=== PATIENT | female | born 1955 | race African-American/Black ===

== ENCOUNTER 2016-09-20 11:25 | Emergency (ER) | payer OTHER ==
[2016-09-20] MEDS ORDERED: TYLENOL PO ONE (14:06)
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
--- NOTE | 2016-09-20 15:05 | XRay Report ---
Cervical spine: Cervicalgia. AP and lateral views compared to the prior study in August 2015. Bridging spondylosis is noted anteriorly between the C4-5, C5-6, and C6-7 levels. C7 is partially obscured by the shoulder tissues in the lateral projection but is unremarkable in the AP view. The bones are aligned with good preservation of the interspaces. No evidence of fracture and no prevertebral swelling. The findings are generally unchanged from prior study. Impression: Degenerative spondylosis. No acute finding.
[2016-09-20 15:33] VITALS: BP 140/80
== END 2016-09-20 15:32 | disposition home or self-care (01) ==
LOC: ED 11:25
DX: S39.012A Strain of muscle, fascia and tendon of lower back, initial encounter (principal); I10 Essential (primary) hypertension; V49.49XA Driver injured in collision with other motor vehicles in traffic accident, initial encounter; Y93.9 Activity, unspecified; Y99.9 Unspecified external cause status; Y92.410 Unspecified street and highway as the place of occurrence of the external cause
CPT/HCPCS: 72040; 72100; 99283

== ENCOUNTER 2017-01-29 11:01 | Emergency (ER) | payer OTHER ==
[2017-01-29 12:49] LABS: Bilirubin,Urine NEG (Negative); Blood,Urine NEG (Negative); Ketones,Urine TR mg/dL (Negative); Leukocyte Esterase,Urine NEG (Negative); Nitrite,Urine NEG (Negative); Protein,Urine <15 mg/dL mg/dL (Negative); Urobilinogen,Urine < 2.0 mg/dL (<2.0); WBC,Urine < 1.0 /HPF (0.0-6.0)
[2017-01-29 12:58] LABS: Basophils % (Auto) 0.7 % (0.0-1.8); Eosinophils % (Auto) 0.8 % (0.0-4.3); Hematocrit 42.1 % (30.3-42.9); Hemoglobin 14.3 gm/dl (10.1-14.3); Mean Corpuscular HGB Conc 34 % (30-34); Mean Corpuscular Hemoglobin 31 pg (28-32); Mean Corpuscular Volume 91 fl (79-97); Platelet Count 222 K/mm3 (140-440); Red Blood Count 4.64 M/mm3 (3.65-5.03); White Blood Count 7.8 K/mm3 (4.5-11.0)
--- NOTE | 2017-01-29 12:58 | Emergency Department Report ---
Chief Complaint: Hyperglycemia Stated Complaint: HIGH BLOOD SUGAR Time Seen by Provider: 01/29/17 12:30 - HPI History of Present Illness: Patient here reports that she was seen at her primary care doctor yesterday and had lab work drawn and they called her and told her to come to the emergency room because her blood sugar via chemistry was elevated greater than 500. She said her primary care physician is Dr. Machado. She said she saw him yesterday because she was not feeling good. She denies any pain. Denies any shortness of breath or chest pain. Denies any headache, nausea or vomiting. Patient take metformin 500 mg ER once daily which she says she took this morning and she also takes valsartan/HCTZ once daily which she took this morning and her blood pressure is now 97/58 and she denies any dizziness. - ROS Review of Systems: All systems are negative unless stated in HPI above. - Exam Vital Signs: Vital Signs 01/29/17 12:08 Temperature 97.7 F Pulse Rate 75 Blood Pressure 97/58 O2 Sat by Pulse 98 Oximetry Physical Exam: Gen.: This is a 62-year-old female well-nourished well-developed and nontoxic in appearance. Cardiovascular: S1, S2. Regular rate rhythm negative murmur Mini neurologic: GCS of 15, alert and oriented 3. Normal gait. Normal speech and no facial drooping. MSE screening note: Focused history and physical exam performed. Due to findings the following was ordered:[facility] ED Medical Decision Making - Lab Data Result diagrams: 01/29/17 12:31 01/29/17 12:31 - Medical Decision Making MDM: Patient screened by provider in triage area. Appropriate protocol initiated and patient to be seen in main ED by Dr. ROMERO Disposition for MSE Condition: Stable
[2017-01-29 13:02] LABS: Anion Gap 19 mmol/L; Blood Urea Nitrogen 12 mg/dL (7-17); Calcium 9.1 mg/dL (8.4-10.2); Carbon Dioxide 26 mmol/L (22-30); Chloride 92.7 mmol/L (98-107); Potassium 4.2 mmol/L (3.6-5.0); Sodium 133 mmol/L (137-145)
[2017-01-29 13:09] LABS: Glucose 539 mg/dL (65-100)
[2017-01-29] MEDS ORDERED: NACL 0.9% 1000 ML 1,000 ML IV ONE ×2 (13:13→13:14)
--- NOTE | 2017-01-29 13:50 | Emergency Department Report ---
ED General Adult HPI - General Chief complaint: Hyperglycemia Stated complaint: HIGH BLOOD SUGAR Time Seen by Provider: 01/29/17 12:58 Source: patient Mode of arrival: Ambulatory Limitations: Language Barrier - History of Present Illness Initial comments: 62-year-old female here with complaint of elevated blood sugar. Patient was seen by her primary care doctor yesterday who started her on metformin for elevated blood sugars. She presented to the emergency department today because of continued weakness. Her blood sugars on arrival her over 500. She is having blurry vision increased thirst and increased urination. Her mental status is normal. She denies other complaints. -: Gradual Location: head Improves with: none Worsens with: none Treatments Prior to Arrival: none - Related Data Previous Rx's Medication Instructions Recorded Last Taken Type Cyclobenzaprine [Flexeril] 10 mg PO TID PRN #12 tablet 09/20/16 Unknown Rx Ibuprofen [Motrin] 600 mg PO Q8H PRN #30 tablet 09/20/16 Unknown Rx Allergies Allergy/AdvReac Type Severity Reaction Status Date / Time No Known Allergies Allergy Unverified 09/20/16 12:16 ED Review of Systems ROS: Stated complaint: HIGH BLOOD SUGAR Other details as noted in HPI Comment: All other systems reviewed and negative Constitutional: malaise. denies: chills, fever Eyes: vision change ENT: denies: ear pain, throat pain Respiratory: denies: cough, shortness of breath, wheezing Cardiovascular: denies: chest pain, palpitations Endocrine: no symptoms reported, increased thirst, increased urine Gastrointestinal: denies: abdominal pain, nausea, diarrhea Genitourinary: denies: urgency, dysuria, discharge Musculoskeletal: denies: back pain, joint swelling, arthralgia Skin: denies: rash, lesions Neurological: denies: headache, weakness, paresthesias Psychiatric: denies: anxiety, depression Hematological/Lymphatic: denies: easy bleeding, easy bruising ED Past Medical Hx - Past Medical History Previous Medical History?: Yes Hx Hypertension: Yes Hx Diabetes: Yes - Surgical History Past Surgical History?: No - Family History Family history: no significant - Social History Smoking Status: Never Smoker Substance Use Type: None - Medications Home Medications: Home Medications Medication Instructions Recorded Confirmed Last Taken Type Cyclobenzaprine [Flexeril] 10 mg PO TID PRN #12 tablet 09/20/16 Unknown Rx Ibuprofen [Motrin] 600 mg PO Q8H PRN #30 tablet 09/20/16 Unknown Rx ED Physical Exam - General Limitations: Language Barrier General appearance: alert, in no apparent distress - Head Head exam: Present: atraumatic, normocephalic - Eye Eye exam: Present: normal appearance - ENT ENT exam: Present: mucous membranes dry - Neck Neck exam: Present: normal inspection - Respiratory Respiratory exam: Present: normal lung sounds bilaterally. Absent: respiratory distress - Cardiovascular Cardiovascular Exam: Present: regular rate, normal rhythm. Absent: systolic murmur, diastolic murmur, rubs, gallop - GI/Abdominal GI/Abdominal exam: Present: soft, normal bowel sounds - Extremities Exam Extremities exam: Present: normal inspection - Back Exam Back exam: Present: normal inspection - Neurological Exam Neurological exam: Present: alert, oriented X3 - Psychiatric Psychiatric exam: Present: normal affect, normal mood - Skin Skin exam: Present: warm, dry, intact, normal color. Absent: rash ED Course Vital Signs 01/29/17 12:08 Temperature 97.7 F Pulse Rate 75 Blood Pressure 97/58 O2 Sat by Pulse 98 Oximetry ED Medical Decision Making - Lab Data Result diagrams: 01/29/17 12:31 01/29/17 12:31 Laboratory Results - last 24 hr 01/29/17 01/29/17 01/29/17 12:22 12:31 12:31 WBC 7.8 RBC 4.64 Hgb 14.3 Hct 42.1 MCV 91 MCH 31 MCHC 34 RDW 13.0 L Plt Count 222 Lymph % (Auto) 18.7 [place] % (Auto) 5.2 Eos % (Auto) 0.8 Baso % (Auto) 0.7 Lymph # 1.5 [place] # 0.4 Eos # 0.1 Baso # 0.1 Seg Neutrophils % 74.6 H Seg Neutrophils # 5.8 VBG pH Sodium 133 L Potassium 4.2 Chloride 92.7 L Carbon Dioxide 26 Anion Gap 19 BUN 12 Creatinine 0.6 L Estimated GFR > 60 BUN/Creatinine Ratio 20.00 Glucose 539 H* POC Glucose > 500 H Calcium 9.1 Urine Color Urine Turbidity Urine pH Ur Specific [place] Urine Protein Urine Glucose (UA) Urine Ketones Urine Blood Urine Nitrite Urine Bilirubin Urine Urobilinogen Ur Leukocyte Esterase Urine WBC (Auto) Urine RBC (Auto) 01/29/17 01/29/17 12:31 12:34 WBC RBC Hgb Hct MCV MCH MCHC RDW Plt Count Lymph % (Auto) [place] % (Auto) Eos % (Auto) Baso % (Auto) Lymph # [place] # Eos # Baso # Seg Neutrophils % Seg Neutrophils # VBG pH 7.358 Sodium Potassium Chloride Carbon Dioxide Anion Gap BUN Creatinine Estimated GFR BUN/Creatinine Ratio Glucose POC Glucose Calcium Urine Color Colorless Urine Turbidity Clear Urine pH 7.0 Ur Specific [place] 1.027 Urine Protein <15 mg/dl Urine Glucose (UA) >=500 Urine Ketones Tr Urine Blood Neg Urine Nitrite Neg Urine Bilirubin Neg Urine Urobilinogen < 2.0 Ur Leukocyte Esterase Neg Urine WBC (Auto) < 1.0 Urine RBC (Auto) 2.0 - Medical Decision Making 8-year-old female presents with elevated blood sugars. Blood sugars greater than 500 currently. She has no other complaints. Plan to treat with IV fluids and will reassess. She is our treatment started on oral metformin. Discussed possibility of admission with patient. She does not have an anion gap does not feel altered and otherwise feels improved after IV fluids. Patient does not want to stay in the hospital. Given the improvement in her blood sugar and the stability of her vital signs and lab work I feel this patient home. Plan to discharge patient home with continued metformin. Counseled her that she needs to follow up closely with her primary care doctor to monitor her blood sugars. Portions of this chart were dictated with dictation software. There may be dictation errors contained within this note. Critical care attestation.: If time is entered above; I have spent that time in minutes in the direct care of this critically ill patient, excluding procedure time. ED Disposition Clinical Impression: Hyperglycemia Is pt being admited?: No Condition: Stable Instructions: Diabetic Hyperglycemia (ED) Additional Instructions: Please follow-up with your primary care doctor later this week to have your blood sugar rechecked. Referrals: PRIMARY CARE, [Referring] - 3-5 Days
[2017-01-29 17:07] VITALS: BP 103/55
[2017-01-29 23:09] LABS: Alanine Aminotransferase 23 units/L (7-56); Albumin 4.4 g/dL (3.9-5); Albumin/Globulin Ratio 1.4 %; Alkaline Phosphatase 74 units/L (35-129); Total Protein 7.5 g/dL (6.3-8.2)
[2017-01-29 23:10] LABS: Bilirubin,Direct < 0.2 mg/dL (0-0.2); Bilirubin,Indirect 0.3 mg/dL
== END 2017-01-29 17:15 | disposition home or self-care (01) ==
LOC: ED 11:01
DX: E11.65 Type 2 diabetes mellitus with hyperglycemia (principal); I10 Essential (primary) hypertension
CPT/HCPCS: 36415; 80048; 80074; 81001; 82805; 82962; 85025; 96360; 96361; 99284; J7030